=== PATIENT | male | born 1955 | race Caucasian/White ===

== ENCOUNTER 2017-03-19 00:58 | Emergency (ER) | payer OTHER ==
[~2017-03-19] VITALS: Ht 185.4 cm; Wt 71.4 kg
[2017-03-19] MEDS ORDERED: METH500T PO (01:27)
[2017-03-19] MEDS ORDERED: METH4TAB3 PO (01:27)
[2017-03-19 01:39] VITALS: BP 118/67
[2017-03-20] MEDS ORDERED: METH500T PO (11:35)
[2017-03-20] MEDS ORDERED: METH4TAB3 PO (11:35)
== END 2017-03-19 01:47 | disposition home or self-care (01) ==
LOC: ER 01:00
DX: M54.42 Lumbago with sciatica, left side (principal); G89.29 Other chronic pain; F19.10 Other psychoactive substance abuse, uncomplicated
CPT/HCPCS: 99283

== ENCOUNTER 2017-03-20 11:01 | Emergency (ER) | payer MEDICAID, OTHER ==
[~2017-03-20] VITALS: Ht 180.3 cm; Wt 72.9 kg
[~2017-03-20 11:01] MED LIST: METH4TAB3 PO; METH500T PO
[2017-03-20] MEDS ORDERED: METH4TAB3 PO (11:35)
[2017-03-20] MEDS ORDERED: METH500T PO (11:35)
[2017-03-20 11:40] VITALS: BP 122/96
== END 2017-03-20 11:41 | disposition home or self-care (01) ==
LOC: ER 11:01
DX: M54.31 Sciatica, right side (principal); M54.32 Sciatica, left side; G89.29 Other chronic pain; F11.10 Opioid abuse, uncomplicated; Z88.8 Allergy status to other drugs, medicaments and biological substances; Z59.0 Homelessness
CPT/HCPCS: 99284